=== PATIENT | female | born 1990 | race Hispanic/Latino ===

== ENCOUNTER 2018-06-19 13:19 | Emergency (ER) | payer MEDICAID ==
[2018-06-19 14:10] LABS: APPEARANCE,URINE Cloudy (CLEAR); BILIRUBIN,URINE Negative (NEGATIVE); COLOR,URINE Yellow (YELLOW); GLUCOSE, URINE (UA) Negative (NEGATIVE); KETONES,URINE Trace mg/dL (NEGATIVE); LEUKOCYTE ESTERASE ,URINE Negative (NEGATIVE); NITRATE,URINE Negative (NEGATIVE); OCCULT BLOOD,URINE Negative (NEGATIVE); PROTEIN,URINE Negative (NEGATIVE)
[2018-06-19 14:17] LABS: BACTERIA,URINE Few /HPF (None Seen); RBC,URINE 0-1 /HPF (0-1); SQUAMOUS EPITHELIAL CELL,UR Many /HPF (0-2); WBC,URINE 0-1 /HPF (0-1)
== END 2018-06-19 14:31 | disposition home or self-care (01) ==
LOC: EDH 13:19
DX: O26.891 Other specified pregnancy related conditions, first trimester (principal); R10.31 Right lower quadrant pain; R10.32 Left lower quadrant pain; R50.9 Fever, unspecified; Z3A.11 11 weeks gestation of pregnancy; Z98.890 Other specified postprocedural states
CPT/HCPCS: 76801; 81001

== ENCOUNTER 2018-07-04 14:23 | Emergency (ER) | payer MEDICAID ==
[2018-07-04 15:19] LABS: BILIRUBIN,URINE Negative (NEGATIVE); COLOR,URINE Yellow (YELLOW); GLUCOSE, URINE (UA) Negative (NEGATIVE); KETONES,URINE Trace mg/dL (NEGATIVE); LEUKOCYTE ESTERASE ,URINE Small (NEGATIVE); NITRATE,URINE Negative (NEGATIVE); OCCULT BLOOD,URINE Negative (NEGATIVE); PROTEIN,URINE Negative (NEGATIVE)
[2018-07-04 15:22] LABS: APPEARANCE,URINE Clear (CLEAR)
[2018-07-04 15:53] LABS: BACTERIA,URINE None Seen /HPF (None Seen); RBC,URINE None Seen /HPF (0-1); WBC,URINE 0-1 /HPF (0-1); YEAST,URINE BUDDING Rare /HPF (None Seen)
== END 2018-07-04 18:03 | disposition home or self-care (01) ==
LOC: EDH 14:23
DX: O23.591 Infection of other part of genital tract in pregnancy, first trimester (principal); B37.3 Candidiasis of vulva and vagina; Z3A.13 13 weeks gestation of pregnancy
CPT/HCPCS: 76801; 81001; 87210; 87486; 87797